=== PATIENT | male | born 1975 | race Caucasian/White ===

== ENCOUNTER 2020-08-31 14:59 | Emergency (ER) | payer OTHER, BC ==
[2020-08-31] MEDS: Sodium Chloride 0.9% 1,000 ML IV SCH ×2 (15:15→16:46)
[2020-08-31] MEDS ORDERED: Sodium Chloride 0.9% 10 ML Syringe FLUSH PRN (15:21)
[2020-08-31] MEDS ORDERED: Ondansetron 4 MG/2 ML SDV IVPUSH ONE (15:22)
--- NOTE | 2020-08-31 15:27 | EDM.PDOC ---
ED HPI GENERAL MEDICAL PROBLEM - General Chief Complaint: Gastrointestinal Problem Time Seen by Provider: 08/31/20 15:08 Source of Information: Reports: Patient History Limitations: Reports: No Limitations - History of Present Illness INITIAL COMMENTS - FREE TEXT/NARRATIVE: Pt. presents to ER with complaints of nausea and vomiting, myalgias, arthralgias and fatigue that started yesterday. Pt. has been unable to hold down food or fluids. He states that he has had some sick contacts recently. He works in the outpatient receptionist area of the hospital, so certainly he could have been exposed there as well. He denies any diarrhea. No bloody stools. He denies any chest pain or shortness of breath. He denies any cough. No chest congestion. He has had his covid vaccine. Pt. denies any dysuria. No rashes. He complains of a headache. Pt. complains of some mid upper abdominal discomfort. Denies any pain in the lower quadrants. No RUQ pain. Denies any flank pain. No hematuria. Onset: Today Location: Reports: Abdomen, Generalized Improves with: Reports: Rest Worsens with: Reports: Eating Associated Symptoms: Reports: Fever/Chills, Headaches, Nausea/Vomiting, Weakness Lower Back Pain Score (Numeric/FACES): 4 - Related Data Allergies Allergy/AdvReac Type Severity Reaction Status Date / Time Sulfa (Sulfonamide Allergy Severe Anaphylactic Verified 08/31/20 15:37 Antibiotics) Shock Home Meds: Home Meds Cetirizine HCl 10 mg PO DAILY 02/24/18 [History] Pantoprazole Sodium [Protonix] 40 mg PO DAILY 02/24/18 [History] Propranolol HCl 80 mg PO DAILY 02/24/18 [History] gemfibroziL [Lopid] 600 mg PO DAILY 02/24/18 [History] Diclofenac Sodium [Voltaren 1% Gel] 1 applic TOP QID PRN 08/31/20 [History] SUMAtriptan [Imitrex] 100 mg PO ASDIRECTED PRN 08/31/20 [History] Past Medical History HEENT History: Reports: Allergic Rhinitis Cardiovascular History: Reports: High Cholesterol Gastrointestinal History: Reports: GERD Genitourinary History: Reports: Chronic Renal Insuffiency Other Genitourinary History: CKD III Musculoskeletal History: Reports: Osteoarthritis, Other (See Below) Other Musculoskeletal History: TARSAL TUNNEL SYNDROME BILAT Neurological History: Reports: Migraines - Past Surgical History HEENT Surgical History: Reports: None Cardiovascular Surgical History: Reports: None GI Surgical History: Reports: None Musculoskeletal Surgical History: Reports: Other (See Below) Other Musculoskeletal Surgeries/Procedures:: TARSAL TUNNEL RELEASE AND PATELLAE SX Social & Family History - Family History Cardiac: Reports: AR (paternal gradfather) GI: Reports: Other (See Below) (paternal grandfather liver failure.) Psychiatric: Reports: Suicide Attempt (paternal grandmother completed.) Endocrine/Metabolic: Reports: Diabetes, type II (maternal gradparents) Oncologic: Reports: Leukemia (father AML, from dyfuse alveolar hemorrhage due to high dose steroid.) ED ROS GENERAL - Review of Systems Review Of Systems: See Below Constitutional: Reports: No Symptoms HEENT: Reports: No Symptoms Respiratory: Reports: No Symptoms Cardiovascular: Reports: Lightheadedness Endocrine: Reports: No Symptoms GI/Abdominal: Reports: Nausea, Vomiting. Denies: Black Stool, Bloody Stool, Difficulty Swallowing, Distension, Hematemesis, Hematochezia, Melena : Reports: No Symptoms. Denies: Dysuria, Frequency, Hematuria, Urgency Musculoskeletal: Reports: Joint Pain, Muscle Pain Skin: Reports: No Symptoms Neurological: Reports: Headache, Weakness Psychiatric: Reports: No Symptoms Hematologic/Lymphatic: Reports: No Symptoms Immunologic: Reports: No Symptoms ED EXAM, GENERAL - Physical Exam Exam: See Below Exam Limited By: No Limitations General Appearance: Alert, WD/WN, No Apparent Distress Nose: Normal Inspection Throat/Mouth: Normal Inspection, Normal Oropharynx, No Airway Compromise, Other (oral mucosa dry) Head: Atraumatic, Normocephalic Neck: Normal Inspection, Supple, Non-Tender, Full Range of Motion Respiratory/Chest: No Respiratory Distress, Lungs Clear, Normal Breath Sounds, No Accessory Muscle Use, Chest Non-Tender Cardiovascular: Normal Peripheral Pulses, Regular Rate, Rhythm, No Edema, No JVD, No Murmur GI/Abdominal: Soft, No Distention, No Mass, Pelvis Stable, Tender (Pain, mid upper abd, not worse with palpation. No periumbilical. No lower quad. pain. No RUQ pain. No guarding or rebound tenderness.) Rectal (Males) Exam: Deferred Back Exam: Normal Inspection, Full Range of Motion Extremities: Normal Inspection, Normal Range of Motion, No Pedal Edema, Normal Capillary Refill Neurological: Alert, Oriented, CN II-XII Intact, Normal Cognition, Normal Reflexes, No Motor/Sensory Deficits Psychiatric: Normal Affect, Normal Mood Skin Exam: Warm, Dry, Intact, Pallor Lymphatic: No Adenopathy Course - Vital Signs Last Recorded V/S: Last Vital Signs Temp 36.1 C 08/31/20 15:05 Pulse 124 H 08/31/20 15:05 Resp 16 08/31/20 15:05 BP 118/77 08/31/20 15:05 Pulse Ox 97 08/31/20 15:05 - Orders/Labs/Meds Orders: Active Orders 24 hr Category Date Time Status Sodium Chloride 0.9% [Normal Saline] 1,000 ml Med 08/31/20 15:30 Active IV ASDIRECTED Sodium Chloride 0.9% [Saline Flush] Med 08/31/20 15:21 Active 10 ml FLUSH ASDIRECTED PRN Peripheral IV Insertion Adult [OM.PC] Routine Oth 08/31/20 15:21 Ordered Medication Orders Sodium Chloride (Normal Saline) 1,000 mls @ 1,000 mls/hr IV ASDIRECTED NICOLETTE Last Admin: 08/31/20 16:46 Dose: 1,000 mls/hr Documented by: Infusion: 08/31/20 16:15 Dose: 1,000 mls/hr Documented by: Admin: 08/31/20 15:15 Dose: 1,000 mls/hr Documented by: FOX Sodium Chloride (Sodium Chloride 0.9% 10 Ml Syringe) 10 ml FLUSH ASDIRECTED PRN PRN Reason: Keep Vein Open Labs: Laboratory Tests 08/31/20 08/31/20 08/31/20 Range/Units 13:12 13:12 13:12 WBC 9.3 (4.0-10.0) x10^3/uL RBC 4.98 (4.5-6.0) x10^6/uL Hgb 15.0 (14.0-18.0) g/dL Hct 43.2 (40.0-52.0) % MCV 86.7 (78.0-93.0) fL MCH 30.1 (26.0-32.0) pg MCHC 34.7 (32.0-36.0) g/dL RDW Coeff of Dianna 13.6 (10.0-15.0) % Plt Count 172 (130-400) x10^3/uL Neut % (Auto) 92.6 H (50.0-80.0) % Lymph % (Auto) 3.4 L (25.0-50.0) % Russell % (Auto) 3.5 (2.0-11.0) % Eos % (Auto) 0.4 (0.0-4.0) % Baso % (Auto) 0.1 L (0.2-1.2) % PT 10.7 (9.9-12.5) SEC INR 1.0 L (2.0-3.5) APTT (25.6-32.8) SEC Sodium 138 (136-145) mmol/L Potassium 3.8 (3.5-5.1) mmol/L Chloride 102 (98-107) mmol/L Carbon Dioxide 23 (21-32) mmol/L Anion Gap 16.8 H (5-15) mmol/L BUN 27 H (7-18) mg/dL Creatinine 1.4 H (0.70-1.30) mg/dL Est Cr Clr Drug Dosing TNP Estimated GFR (MDRD) 56 Glucose 138 H (74-106) mg/dL Calcium 8.8 (8.5-10.1) mg/dL Corrected Calcium 8.72 (8.5-10.1) mg/dL Magnesium 1.6 L (1.8-2.4) mg/dL Total Bilirubin 1.1 H (0.2-1.0) mg/dL AST 26 (15-37) U/L ALT 67 H (16-63) U/L Alkaline Phosphatase 93 (46-116) U/L C-Reactive Protein 2.7 H (<=0.9) mg/dL Total Protein 8.2 (6.4-8.2) g/dL Albumin 4.1 (3.4-5.0) g/dL Globulin 4.1 Albumin/Globulin Ratio 1.00 Amylase 36 (25-115) U/L Lipase 94 (73-393) U/L Urine Color (YELLOW) Urine Appearance (CLEAR) Urine pH (5.0-8.0) Ur Specific [place] Urine Protein (NEGATIVE) mg/dL Urine Glucose (UA) (NEGATIVE) mg/dL Urine Ketones (NEGATIVE) mg/dL Urine Occult Blood (NEGATIVE) Urine Nitrite (NEGATIVE) Urine Bilirubin (NEGATIVE) Urine Urobilinogen (0.2) EU/dL Ur Leukocyte Esterase (NEGATIVE) Urine RBC (NOT SEEN) /HPF Urine WBC (NOT SEEN) /HPF Ur Squamous Epith Cells (NOT SEEN) /HPF Urine Bacteria (NOT SEEN) /HPF Urine Mucus (NOT SEEN) /LPF SARS CoV-2 RNA Rapid AZRA (NEGATIVE) 08/31/20 08/31/20 08/31/20 Range/Units 13:12 15:12 15:35 WBC (4.0-10.0) x10^3/uL RBC (4.5-6.0) x10^6/uL Hgb (14.0-18.0) g/dL Hct (40.0-52.0) % MCV (78.0-93.0) fL MCH (26.0-32.0) pg MCHC (32.0-36.0) g/dL RDW Coeff of Dianna (10.0-15.0) % Plt Count (130-400) x10^3/uL Neut % (Auto) (50.0-80.0) % Lymph % (Auto) (25.0-50.0) % Russell % (Auto) (2.0-11.0) % Eos % (Auto) (0.0-4.0) % Baso % (Auto) (0.2-1.2) % PT (9.9-12.5) SEC INR (2.0-3.5) APTT 23.4 L (25.6-32.8) SEC Sodium (136-145) mmol/L Potassium (3.5-5.1) mmol/L Chloride (98-107) mmol/L Carbon Dioxide (21-32) mmol/L Anion Gap (5-15) mmol/L BUN (7-18) mg/dL Creatinine (0.70-1.30) mg/dL Est Cr Clr Drug Dosing Estimated GFR (MDRD) Glucose (74-106) mg/dL Calcium (8.5-10.1) mg/dL Corrected Calcium (8.5-10.1) mg/dL Magnesium (1.8-2.4) mg/dL Total Bilirubin (0.2-1.0) mg/dL AST (15-37) U/L ALT (16-63) U/L Alkaline Phosphatase (46-116) U/L C-Reactive Protein (<=0.9) mg/dL Total Protein (6.4-8.2) g/dL Albumin (3.4-5.0) g/dL Globulin Albumin/Globulin Ratio Amylase (25-115) U/L Lipase (73-393) U/L Urine Color Yellow (YELLOW) Urine Appearance Clear (CLEAR) Urine pH 8.0 (5.0-8.0) Ur Specific [place] 1.020 Urine Protein 30 H (NEGATIVE) mg/dL Urine Glucose (UA) Negative (NEGATIVE) mg/dL Urine Ketones Negative (NEGATIVE) mg/dL Urine Occult Blood Negative (NEGATIVE) Urine Nitrite Negative (NEGATIVE) Urine Bilirubin Negative (NEGATIVE) Urine Urobilinogen 0.2 (0.2) EU/dL Ur Leukocyte Esterase Negative (NEGATIVE) Urine RBC 0-5 (NOT SEEN) /HPF Urine WBC 0-5 (NOT SEEN) /HPF Ur Squamous Epith Cells Not seen (NOT SEEN) /HPF Urine Bacteria Not seen (NOT SEEN) /HPF Urine Mucus Occasional H (NOT SEEN) /LPF SARS CoV-2 RNA Rapid AZRA Negative (NEGATIVE) Meds: Medications Generic Name Dose Route Start Last Admin Trade Name Freq PRN Reason Stop Dose Admin Sodium Chloride 1,000 mls @ 1,000 mls/hr 08/31/20 15:30 08/31/20 16:46 Normal Saline IV 1,000 mls/hr ASDIRECTED NICOLETTE Administration Sodium Chloride 10 ml 08/31/20 15:21 Sodium Chloride 0.9% 10 Ml Syringe FLUSH ASDIRECTED PRN Keep Vein Open Discontinued Medications Generic Name Dose Route Start Last Admin Trade Name Freq PRN Reason Stop Dose Admin Acetaminophen 1,000 mg 08/31/20 16:17 08/31/20 16:25 Acetaminophen 500 Mg Tab PO 08/31/20 16:18 1,000 mg ONETIME ONE Administration Ondansetron HCl 4 mg 08/31/20 15:22 08/31/20 15:29 Ondansetron 4 Mg/2 Ml Sdv IVPUSH 08/31/20 15:23 4 mg ONETIME ONE Administration Ondansetron HCl 2 packet 08/31/20 16:58 Take Home: Ondansetron 4 Mg Tab.Dis, 2 Tab Pack PO 08/31/20 16:59 ONETIME ONE Departure - Departure Time of Disposition: 17:45 Disposition: Home, Self-Care 01 Clinical Impression: Gastroenteritis - Discharge Information Instructions: Ondansetron oral dissolving tablet, Viral Gastroenteritis, Adult, [id number] Referrals: Nelly Mead MD [Primary Care Provider] - Forms: ED Department Discharge Additional Instructions: Zofran ODT 4mg 1 tab every 6 hours as needed for nausea/vomiting. Tylenol as needed for body aches, headache or fever. I would avoid anything by mouth tonight, with the exception of a small amount of clear liquid. I would continue with clear liquids tomorrow. You can slowly advance your diet to include bananas, rice, potatoes, toast, and crackers as you feel able. Return to ER if you are unable to hold down fluids or have worsening abdominal discomfort. Recheck in clinic in 7-10 days, sooner if not gradually improving. Sepsis Event Note (ED) - Focused Exam Vital Signs: Vital Signs Temp Pulse Resp BP Pulse Ox 08/31/20 15:05 36.1 C 124 H 16 118/77 97 - Problem List Review Problem List Initiated/Reviewed/Updated: Yes - My Orders Last 24 Hours: My Active Orders 08/31/20 15:21 Sodium Chloride 0.9% [Saline Flush] 10 ml FLUSH ASDIRECTED PRN Peripheral IV Insertion Adult [OM.PC] Routine 08/31/20 15:30 Sodium Chloride 0.9% [Normal Saline] 1,000 ml IV ASDIRECTED - Assessment/Plan Last 24 Hours: My Active Orders 08/31/20 15:21 Sodium Chloride 0.9% [Saline Flush] 10 ml FLUSH ASDIRECTED PRN Peripheral IV Insertion Adult [OM.PC] Routine 08/31/20 15:30 Sodium Chloride 0.9% [Normal Saline] 1,000 ml IV ASDIRECTED Plan: Zofran ODT 4mg 1 tab every 6 hours as needed for nausea/vomiting. Tylenol as needed for body aches, headache or fever. I would avoid anything by mouth tonight, with the exception of a small amount of clear liquid. I would continue with clear liquids tomorrow. You can slowly advance your diet to include bananas, rice, potatoes, toast, and crackers as you feel able. Return to ER if you are unable to hold down fluids or have worsening abdominal discomfort. Recheck in clinic in 7-10 days, sooner if not gradually improving.
[2020-08-31 15:43] LABS: CHLORIDE,CL 102 mmol/L (98-107); SODIUM,NA 138 mmol/L (136-145)
[2020-08-31 15:44] LABS: ANION GAP 16.8 mmol/L (5-15)
[2020-08-31] MEDS ORDERED: Acetaminophen 500 MG Tab PO ONE (16:17)
[2020-08-31] MEDS ORDERED: Take Home: Ondansetron 4 MG Tab.DIS, 2 Tab Pack PO ONE (16:58)
== END 2020-08-31 17:50 | disposition home or self-care (01) ==
LOC: VM.ED 14:59
DX: K52.9 Noninfective gastroenteritis and colitis, unspecified (principal); N18.30 Chronic kidney disease, stage 3 unspecified; K21.9 Gastro-esophageal reflux disease without esophagitis; Z20.822 Contact with and (suspected) exposure to COVID-19; Z88.2 Allergy status to sulfonamides; Z79.899 Other long term (current) drug therapy
CPT/HCPCS: 80053; 81001; 82150; 83690; 83735; 85025; 85610; 85730; 86140; 96374; 99284; 99284-25; A9270-GY; J2405; J7030; U0002